=== PATIENT | female | born 2000 | race Caucasian/White ===

== ENCOUNTER 2023-10-06 17:15 | Emergency (ER) | payer MEDICAID ==
[~2023-10-06] VITALS: Ht 162.6 cm; Wt 59.0 kg
[2023-10-06 17:30] VITALS: BP_SYST 132; PULSE 83; RESP 17; TEMP 98.1; O2SAT 98
[2023-10-06] MEDS ORDERED: IBUP-1969 PO (20:07)
== END 2023-10-06 20:30 | disposition home or self-care (01) ==
LOC: SED 17:15
DX: S33.5XXA Sprain of ligaments of lumbar spine, initial encounter (principal); S13.4XXA Sprain of ligaments of cervical spine, initial encounter; S00.83XA Contusion of other part of head, initial encounter; Z79.899 Other long term (current) drug therapy; W01.0XXA Fall on same level from slipping, tripping and stumbling without subsequent striking against object, initial encounter; Y93.89 Activity, other specified; Y92.89 Other specified places as the place of occurrence of the external cause; Y99.8 Other external cause status
CPT/HCPCS: 70450-TC; 71046; 72125-TC; 76376; 81025; 99284